=== PATIENT | female | born 1935 | race Caucasian/White ===

== ENCOUNTER → 2017-12-25 08:41 | Outpatient (CLI) | payer MEDICARE, BC ==
[2017-12-25 09:45] LABS: ALBUMIN 3.8 g/dL (3.4-5.0); BILIRUBIN - DIRECT 0.12 mg/dL (0.00-0.30); BILIRUBIN - INDIRECT 0.48 mg/dL (0.00-1.00); BILIRUBIN - TOTAL 0.6 mg/dL (0.2-1.3); PROTEIN - SERUM 6.9 g/dL (6.4-8.2)
== END | disposition home or self-care (01) ==
LOC: D.LAB 08:41 → D.US 09:00 → D.NM 09:30
PROVIDERS: Internal Medicine Gastroenterology
DX: R10.9 Unspecified abdominal pain (principal); R11.0 Nausea

== ENCOUNTER → 2019-02-12 11:27 | Outpatient (CLI) | payer MEDICARE, BC ==
--- NOTE | 2019-02-14 15:13 | EC ---
PATIENT:VERA COPELAND DATE OF SERVICE: 02/12/19 SEX: F MEDICAL RECORD: [id number] DATE OF : 35 LOCATION:[facility] AGE OF PATIENT: 83 ADMISSION DATE: 02/12/19 REFERRING PHYSICIAN: INTERPRETING PHYSICIAN: OZ MELENDREZ MD ECHOCARDIOGRAM REPORT ECHO CHARGES 4 ECHO COMPLETE Date: 02/12/19 CLINICAL DIAGNOSIS: HTN/MITRAL REGURG ECHOCARDIOGRAPHIC MEASUREMENTS (adult normal given) AC root (d.<3.7cm) 2.2 cm LV Septum d (<1.2 cm> 1.1 cm Valve Excursion 1.3 cm LV Septum (systole) 1.2 cm Left Atria (s.<4.0cm> 3.0 cm LVPW d(<1.2cm) 1.0 cm RV (d.<2.3cm) 3.3 cm LVPW (sytole) 1.4 cm LV diastole(<5.6CM) 4.2 cm MV E-F(>70mm/sec) cm LV systole 2.7 cm LVOT Diameter cm MV exc.(>10mm) 0.8 cm Est.ejection fraction (50-75%) % DOPPLER: LVIT cm/sec A 80.0 cm/sec E 56.0 cm/sec LA cm/sec RVSP 25 mmHg LVOT 96 cm/sec AOP1/2T m/s Asc. Ao 111 cm/sec RVOT 80 cm/sec RA cm/sec PA 100 cm/sec AV Gradient Peak 4.94 mmHg AV Mean 2.61 mmHg AV Area 2.1 cm MV Gradient Peak 2.90 mmHg MV Mean 1.26 mmHg MV Area cm COMMENTS: Insurance Verifier: Mihaela GONZALEZ Fish Bin Tender: 1 Dr. Melendrez TAPE# PACS Pericardial Effusion N DATE OF SERVICE: 02/12/2019 PROCEDURE: Echocardiogram. FINDINGS: 1. Left ventricular chamber size is within normal limits. Left ventricular systolic function is normal. Overall ejection fraction estimated at 55%. 2. Left atrium, right atrium, and right ventricle chamber sizes are within normal limits. 3. Valvular structures have normal structure and motion. ECHOCARDIOGRAM REPORT [id number] VERA COPELAND 4. Doppler interrogation reveals mild mitral regurgitation, mild tricuspid regurgitation, no other valvular insufficiency or stenosis. Pulmonary systolic pressure is estimated at 25 mmHg. 5. No evidence of pericardial effusion or left ventricular thrombus. TRANSINT:[id number] Voice Confirmation ID: [id number] DOCUMENT ID: [id number] OZ MELENDREZ MD at 1513 CC: [id number] DICTATION DATE: 02/12/19 1545 TIME BROKER: 02/12/19 1549 DEP CLI 02/12/19 [place] [id number] [place] [id number]
== END | disposition home or self-care (01) ==
LOC: D.HCCARDIO 11:27
DX: I10 Essential (primary) hypertension (principal)